=== PATIENT | female | born 1960 | race Caucasian/White ===

== ENCOUNTER 2016-03-24 14:59 | Emergency (ER) | payer OTHER ==
[2016-03-24 15:22] VITALS: BP 126/66
--- NOTE | 2016-03-24 21:51 | UC ---
Tanner Adhikari Janilya, scribed for Janneth Vitale MD on 03/24/16 at 1558 . Head Injury HPI - HPI Summary HPI Summary: A 56 y/o female presents to [facility] w/o an episode of "double vision," occurred yesterday approx 1100. Pt was head bumped when she was embraced by a friend at that time. She immediately noted a few seconds of unsteady feeling with horizontal back and forth "seeing double." Not verticle. No n/v/d. No tiniitus, no LOC. Denies pain at the time, or now. Double vision has not returned. No p/d/w. No LOC. Incident occurred at work, she was able to get through the remainder of the day, sleep ok last night (went to bed late per usual). Appetite good. No GI or urinary issues. Did not go to work today, as planned day off. She presents today for a checkup because she found the event concerning. Pt wears glasses for reading, driving, and watching television. Pt was able to eat, drink, sleep, smoke, go up stairs, and continue with her daily activities with no difficulties. Denies fever, cold, cough, nausea, chills, ear problems, teeth problems, abd pain, urinary problems, weakness and numbness in extremities. Of note, Ms. Arciniega reports that she usually is active in Pilates and sports, but hasn't done this since last month's injury because of concussive sx. PMHx - pt had a head injury on 02/09/2016 when she was "hit by a big heavy door ". Pt had a CT scan (no intracranial issues noted) and was diagnosed as a concussion. 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 Allergies - penicillin. SHx - tobacco use. - History Of Current Complaint Chief Complaint: UCHeadInjury Stated Complaint: DOUBLE VISION EVENT Hx Obtained From: Patient Hx From Patient Unobtainable Due To: Dementia Onset/Duration: Sudden Onset, Lasting Hours, Resolved Severity Currently: Moderate Severity Initially: Moderate - Risk Factors SDH Risk Factor: Male, Recent Trauma - feb 2016 - Allergies/Home Medications Allergies/Adverse Reactions: Allergies Allergy/AdvReac Type Severity Reaction Status Date / Time Penicillins Allergy Hives Verified 02/09/16 15:10 PMH/Surg Hx/FS Hx/Imm Hx Previously Healthy: Yes - see hpi Endocrine History Of: Denies: Diabetes, Thyroid Disease Cardiovascular History Of: Denies: Cardiac Disorders, Hypertension Respiratory History Of: Denies: COPD, Asthma GI/ History Of: Denies: Ulcer - Surgical History Surgical History: Yes Surgery Procedure, Year, and Place: uterine fibroid - Family History Known Family History: Positive: Hypertension - mother, Diabetes - mother Negative: Cardiac Disease - Social History Alcohol Use: Occasionally Alcohol Amount: wine Substance Use Type: None Smoking Status (MU): Light Every Day Tobacco Smoker Type: Cigarettes Amount Used/How Often: 7-8 cigs per day - Immunization History Most Recent Influenza Vaccination: never Most Recent Tetanus Shot: up to date Most Recent Pneumonia Vaccination: never Review of Systems Constitutional: Negative - see hpi Skin: Negative Eyes: Diplopia, Other - see hpi ENT: Negative Respiratory: Negative Cardiovascular: Negative Gastrointestinal: Negative Genitourinary: Negative Motor: Negative Neurovascular: Negative Musculoskeletal: Negative Neurological: Negative Psychological: Negative All Other Systems Reviewed And Are Negative: Yes Physical Exam Triage Information Reviewed: Yes Appearance: Well-Appearing, Well-Nourished - sitting up. conversing easily and appropriately. Seems in good spirits. Pleasant. Vital Signs: Initial Vital Signs Temp 99.1 F 03/24/16 15:13 Pulse 79 03/24/16 15:13 Resp 18 03/24/16 15:13 BP 126/66 03/24/16 15:13 Vital Signs Reviewed: Yes Eye Exam: Normal, Other - PERRLA. EOMI. No nicole nystagmus although did have some challenge maintaining lat gaze and crossing eyes (uncomfortable). Nondilated fundoscopic no gross abnormalities. R brow with mild swelling, at site of injury. No ecchymosis. ENT Exam: Normal ENT: Positive: Normal ENT inspection, Hearing grossly normal, Pharynx normal, Other: - tongue protrudes ok, and to the side w/o diff. Neck exam: Normal - no adenopathy appreciated Neck: Positive: Supple, Nontender Respiratory Exam: Normal - no dyspnea, no tachypnea, normal respiratory rate Respiratory: Positive: Chest non-tender, Lungs clear, Normal breath sounds, No respiratory distress, No accessory muscle use Cardiovascular Exam: Normal - Heart rate regular, good general skin color, good capillary refill Cardiovascular: Positive: RRR, No Murmur, Pulses Normal, Brisk Capillary Refill Abdominal Exam: Normal Abdomen Description: Positive: Nontender, No Organomegaly, Soft Bowel Sounds: Positive: Present Musculoskeletal Exam: Normal Musculoskeletal: Positive: Strength Intact Neurological Exam: Normal - CN 1 - 12 intact (smell + alcohol swab) DTR's 2+ B/ BR/P, equal bilat. F to N to F R and L index finger ok, but slower with subj difficultly and miss x 2 L index finger. Vis arriaza grossly intact to finger count. No tremor appreciated. Self report memory and work concentration tolerance ok. AAandOx4. Heel to toe forward / back short walk (3-4 ft) ok. Issue - sharpened Rhomberg R foot forward. Max 7 sec. L foot forward, max 2 seconds. Psychological Exam: Normal - conversing easily and appropriately Skin Exam: Normal - no visible or reported rashes Head Injury Course/Dx - Course Course Of Treatment: I reviewed pertinent [facility] reports dating to Feb 2016. Reviewed CT report. Ms. Arciniega reports that she recently moved to [place], does have a PCP office in [place], but new doctor there. She would like closer referral. Considered below differential dx's. Ms. Arciniega does present with findings / concern for post concussive syndrome. (see cerebellar with sharp rhomb findings) With repeat injury to a far lesser degree yesterday. She will benefit from post concussive evaluation / treatment. She wishes local if possible. As such, referral to Sports Medicine clinic here. Also Physician Referral line for pcp f/u. Ms. Arciniega was given the opportunity to ask several insightful questionsk, to which I answered to the best of my ability. - Differential Dx/Diagnosis Provider Diagnoses: Post concussive syndrome with repeat head injury Discharge - Discharge Plan Condition: Stable Disposition: HOME Patient Education Materials: Concussion (ED), Post Concussion Syndrome (ED) Referrals: [facility]YS[facility]IAN REFERRAL [Outside] Willy Ya [Medical Doctor] - No Primary Care Phys,NOPCP [Primary Care Provider] - Additional Instructions: Avoid driving, avoid alcohol if you are feeling bad. Decrease or stop smoking. Follow up with primary care physician as soon as you are able, if possible in the next couple weeks. Follow up with Sports Medicine physician clinic. Next 1-2 weeks, or next available regarding concussion evaluation / treatment. Please seek medical attention sooner for worse or new problems. The documentation as recorded by the Tanner chand Janilya accurately reflects the service I personally performed and the decisions made by me, Janneth Vitale MD.
== END 2016-03-24 16:55 | disposition home or self-care (01) ==
LOC: UCEAST 14:59
DX: F07.81 Postconcussional syndrome (principal); S09.90XA Unspecified injury of head, initial encounter; W50.0XXA Accidental hit or strike by another person, initial encounter; Y93.9 Activity, unspecified; Y92.9 Unspecified place or not applicable; Z88.0 Allergy status to penicillin; F17.210 Nicotine dependence, cigarettes, uncomplicated
CPT/HCPCS: 99212; G0463